=== PATIENT | female | born 1965 | race Caucasian/White ===

== ENCOUNTER → 2017-01-02 | Outpatient (CLI) | payer OTHER ==
--- NOTE | 2017-01-02 18:26 | Diagnostic Imaging Report ---
INDICATION: Question of cyst on outside CT scan. No study for comparison currently available. FINDINGS: Uterus measures 8.4 x 4 x 3.6 cm. Endometrial stripe is not thickened. Cystic area in the right adnexa measuring 4.2 x 3.2 x 3.2 cm. This has a relatively benign appearance. The ovaries are not identified. There is no free fluid. IMPRESSION: There is a cyst in the right adnexa measuring 4.2 x 3.2 cm. This cannot definitely be confirmed to be ovarian. Followup is recommended to confirm clearing. Dictated by: Dictated on workstation # [id number]
== END ==
LOC: RAD 17:00
PROVIDERS: ATTEND Obstetrics & Gynecology
DX: N83.8 Other noninflammatory disorders of ovary, fallopian tube and broad ligament (principal)
CPT/HCPCS: 76830; 76856

== ENCOUNTER 2017-04-07 15:49 | Emergency (ER) | payer OTHER ==
[~2017-04-07] VITALS: Ht 172.7 cm; Wt 136.1 kg
--- NOTE | 2017-04-07 16:43 | ED Integumentary General ---
General Chief Complaint: Skin/Wound Problems Stated Complaint: CELLULITIS L LEG/FEVER Source: patient, family Exam Limitations: no limitations History of Present Illness Time seen by provider: 16:37 Initial Comments Patient was seen by Dr. ALARCON on Sunday proximally 3 days ago and she was having another bout of cellulitis which she gets from time to time. She has lupus and is treated with methotrexate and Imuran. She feels that after taking 2 days of her gentamicin that she has not gotten any better but rather her rashes gotten worse upper leg on the left ankle to mid way up the calf as well as feels hotter and more tender. She has also noted a fever of 100.3 height today. In The past she was treated successfully with Keflex. She denies any nausea or vomiting, chills, diarrhea, other rash. She says she does feel achy throughout though. Allergies and Home Medications Allergies Coded Allergies: Penicillins (Verified Allergy, Unknown, 04/07/17) Uncoded Allergies: CT CONTRAST (Allergy, Unknown, 04/07/17) Constitutional: see HPI, No chills, No diaphoresis EENTM: No hoarseness, No mouth swelling Respiratory: No cough, No dyspnea on exertion, No short of breath Cardiovascular: No chest pain, No edema, No palpitations Gastrointestinal: No abdominal pain, No constipation, No diarrhea, No nausea, No vomiting Genitourinary: No dysuria, No frequency Musculoskeletal: back pain, joint swelling (multiple chronic) Skin: see HPI Past Tatexos-Nlrfua-Fytqhk Hx Patient Social History Alcohol Use: Occasionally Uses Smoking Status: Never a Smoker Recent Foreign Travel: No Contact w/Someone Who Travel: No Physical Exam Vital Signs Vital Sign - Last 12Hours 04/07/17 16:30 Temp 98.7 Pulse 76 Resp 20 B/P (MAP) 134/85 Pulse Ox 96 O2 Delivery Room Air Capillary Refill : General Appearance: WD/WN, no apparent distress HEENT: PERRL/EOMI, pharynx normal Neck: full range of motion, normal inspection Cardiovascular: regular rate, rhythm, other (bilateral ankle edema) Extremities: normal range of motion, no calf tenderness, inflammation (tender to palpation left lower leg anterior over the ankle.), swelling (left anterior lower leg with bright redness, warmth and tight scaling skin. No evidence of abscess or pocket fluctuation. Skin is otherwise intact.) Neurologic/Psychiatric: no motor/sensory deficits, alert, oriented x 3 Skin: rash (bright red, warm and dry over left lower leg) Skin Problem Location: lower extremities (left) Skin Problem Character: erythema, rash, tenderness Progress/Results/Core Measures Results/Orders Lab Results Laboratory Tests Test 04/07/17 17:00 Range/Units White Blood Count 10.3 4.3-11.0 10^3/uL Red Blood Count 4.01 L 4.35-5.85 10^6/uL Hemoglobin 12.5 11.5-16.0 G/DL Hematocrit 38 35-52 % Mean Corpuscular Volume 95 80-99 FL Mean Corpuscular Hemoglobin 31 25-34 PG Mean Corpuscular Hemoglobin Concent 33 32-36 G/DL Red Cell Distribution Width 14.9 H 10.0-14.5 % Platelet Count 284 130-400 10^3/uL Mean Platelet Volume 9.8 7.4-10.4 FL Neutrophils (%) (Auto) 76 H 42-75 % Lymphocytes (%) (Auto) 12 12-44 % Monocytes (%) (Auto) 7 0-12 % Eosinophils (%) (Auto) 4 0-10 % Basophils (%) (Auto) 0 0-10 % Neutrophils # (Auto) 7.9 H 1.8-7.8 X 10^3 Lymphocytes # (Auto) 1.2 1.0-4.0 X 10^3 Monocytes # (Auto) 0.7 0.0-1.0 X 10^3 Eosinophils # (Auto) 0.4 H 0.0-0.3 10^3/uL Basophils # (Auto) 0.0 0.0-0.1 10^3/uL Sodium Level 140 135-145 MMOL/L Potassium Level 4.1 3.6-5.0 MMOL/L Chloride Level 103 98-107 MMOL/L Carbon Dioxide Level 26 21-32 MMOL/L Anion Gap 11 5-14 MMOL/L Blood Urea Nitrogen 8 7-18 MG/DL Creatinine 0.79 0.60-1.30 MG/DL Estimat Glomerular Filtration Rate > 60 BUN/Creatinine Ratio 10 Glucose Level 92 70-105 MG/DL Lactic Acid Level 1.35 0.50-2.00 MMOL/L Calcium Level 10.4 H 8.5-10.1 MG/DL Total Bilirubin 0.5 0.1-1.0 MG/DL Aspartate Amino Transf (AST/SGOT) 20 5-34 U/L Alanine Aminotransferase (ALT/SGPT) 15 0-55 U/L Alkaline Phosphatase 87 40-136 U/L Total Protein 7.7 6.4-8.2 G/DL Albumin 4.3 3.2-4.5 G/DL My Orders Orders - JOHNATHON KWOK Cbc With Automated Diff (04/07/17 16:47) Comprehensive Metabolic Panel (04/07/17 16:47) Lactic Acid Analyzer (04/07/17 16:47) Ceftriaxone Injection (Rocephin Injectio (04/07/17 17:00) Lidocaine Pf 1% 5 Ml Injection (Xylocain (04/07/17 17:23) Ceftriaxone Injection (Rocephin Injectio (04/07/17 17:30) Lidocaine 1% Injection (Xylocaine 1% Inj (04/07/17 17:30) Medications Given in ED Current Medications Medications Dose Ordered Sig/Jm Route Start Time Stop Time Status Last Admin Dose Admin Ceftriaxone Sodium 1,000 mg ONCE ONCE IM 04/07/17 17:30 04/07/17 17:31 DC 04/07/17 17:40 1,000 MG Lidocaine HCl 5 ml STK-MED ONCE .ROUTE 04/07/17 17:23 04/07/17 17:28 DC 04/07/17 17:40 5 ML Vital Signs/I&O Vital Sign - Last 12Hours 04/07/17 16:30 Temp 98.7 Pulse 76 Resp 20 B/P (MAP) 134/85 Pulse Ox 96 O2 Delivery Room Air Progress Note : Time: 16:52 Progress Note The patient reports having a fever but her vitals are normal at this time and there is no evidence of SIRS criteria area we will obtain some blood ascertain whether or not she is acutely ill requiring IV antibiotics versus outpatient trial #2. Think would be reasonable to start her on a trial of outpatient Keflex and give her a dose of Rocephin today. She is not asking for anything for pain or nausea at this time. She will follow up with her PCP Dr. Alarcon or return to the ER with strict return protocol Departure Impression Impression: Primary Impression: Cellulitis Qualified Codes: L03.116 - Cellulitis of left lower limb Disposition: 01 HOME, SELF-CARE Condition: Improved Departure-Patient Inst. Referrals: NO,LOCAL PHYSICIAN (PCP/Family) Primary Care Physician Patient Instructions: Cellulitis (Skin Infection), Adult (DC) Add. Discharge Instructions: You've been switched to Keflex to be taken four times daily with food if possible. You should also consider getting probiotics to be taken twice daily or yogurt with active culture twice daily to try and eliminate some of the risk of diarrheal side effects from the antibiotics. If you're having pain Tylenol, Motrin and elevation as well as ice to the region of the cellulitis will be helpful. If you're having nausea, vomiting worsening fevers or not getting better the next 3-4 days you should return to your primary care physician or the ER which ever is appropriate. All discharge instructions reviewed with patient and/or family. Voiced understanding. Scripts Cephalexin (Keflex) 500 Mg Capsule 500 MG PO QID for 10 Days, #40 CAP 0 Refills Prov: JOHNATHON KWOK 04/07/17 Work/School Note: Work Release Form Date Seen in the Emergency Department: Apr 07, 2017 Return to Work: Apr 09, 2017 Restrictions: No Restrictions Copy Copies To 1: MACARENA ALARCON TITUS J Apr 07, 2017 16:43
[2017-04-07] MEDS ORDERED: cefTRIAXone INJECTION 1,000 MG in NS (IVPB) 50 ML IV ONE (17:00)
[2017-04-07 17:12] LABS: BASOPHILS % (AUTO) 0 % (0-10); EOSINOPHILS # (AUTO) 0.4 10^3/uL (0.0-0.3); EOSINOPHILS % (AUTO) 4 % (0-10); LYMPHOCYTES # (AUTO) 1.2 X 10^3 (1.0-4.0); LYMPHOCYTES % (AUTO) 12 % (12-44); MEAN CORPUSCULAR HEMOGLOBIN 31 PG (25-34); MEAN CORPUSCULAR HGB CONC 33 G/DL (32-36); MEAN CORPUSCULAR VOLUME 95 FL (80-99); MEAN PLATELET VOLUME 9.8 FL (7.4-10.4); MONOCYTES # (AUTO) 0.7 X 10^3 (0.0-1.0); MONOCYTES % (AUTO) 7 % (0-12); NEUTROPHILS # (AUTO) 7.9 X 10^3 (1.8-7.8); NEUTROPHILS % (AUTO) 76 % (42-75); PLATELET COUNT 284 10^3/uL (130-400); RED BLOOD COUNT 4.01 10^6/uL (4.35-5.85); RED CELL DISTRIBUTION WIDTH 14.9 % (10.0-14.5); WHITE BLOOD COUNT 10.3 10^3/uL (4.3-11.0)
[2017-04-07] MEDS ORDERED: LIDOCAINE PF 1% 5 ML (XYLOCAINE) AMP ONE (17:23)
[2017-04-07 17:30] LABS: ALANINE AMINOTRANSFERASE 15 U/L (0-55); ALBUMIN 4.3 G/DL (3.2-4.5); ANION GAP 11 MMOL/L (5-14); ASPARTATE AMINO TRANSFERASE 20 U/L (5-34); BILIRUBIN,TOTAL 0.5 MG/DL (0.1-1.0); BLOOD UREA NITROGEN 8 MG/DL (7-18); BUN/CREATININE RATIO 10; CALCIUM 10.4 MG/DL (8.5-10.1); CARBON DIOXIDE 26 MMOL/L (21-32); CHLORIDE 103 MMOL/L (98-107); CREATININE SERUM 0.79 MG/DL (0.60-1.30); GFR ESTIMATED > 60; GLUCOSE 92 MG/DL (70-105); POTASSIUM 4.1 MMOL/L (3.6-5.0); SODIUM 140 MMOL/L (135-145); TOTAL PROTEIN 7.7 G/DL (6.4-8.2)
[2017-04-07] MEDS ORDERED: cefTRIAXone 1 GM (ROCEPHIN) VIAL IM ONE (17:30)
[2017-04-07] MEDS ORDERED: LIDOCAINE 1% INJ 20 ML (XYLOCAINE) VIAL INJ ONE (17:30)
[2017-04-07] MEDS ORDERED: CEPH-507 PO (17:46)
[2017-04-07 17:55] VITALS: BP 134/85
== END 2017-04-07 17:55 | disposition home or self-care (01) ==
LOC: EDUNIT# 15:49 → ER 15:50
DX: L03.116 Cellulitis of left lower limb (principal)
CPT/HCPCS: 36415; 80053; 83605; 85025; 99282

== ENCOUNTER → 2017-04-10 | Outpatient (CLI) | payer OTHER ==
[~2017-04-10] MED LIST: CEPH-507 PO
--- NOTE | 2017-04-10 17:16 | Diagnostic Imaging Report ---
CLINICAL INDICATION: Followup right adnexal cyst. EXAM: Transabdominal and transvaginal ultrasound of the pelvis. COMPARISON: Ultrasound of the pelvis dated 01/02/2017. FINDINGS: Shadowing obscures portions of this exam. The uterus measures grossly 8.8 cm x 4.5 cm x 4.4 cm. There are cystic areas seen in the region of the cervix, which may be related to nabothian cysts. Endometrial stripe is 9 mm. There is a 3.2 cm x 3.3 cm x 3.0 cm cystic structure in the right adnexal region, which has slightly decreased in size compared to the prior study measured at 4.2 cm x 3.2 cm. It is unknown if this is associated with the right ovary or in the periovarian region. There is no free fluid in the pelvis. The left ovary is not seen on today's exam due to overlying bowel gas. IMPRESSION: 1: Interval decreased size of the cystic area in the right adnexal region. Unknown if this is associated with the right ovary or in the periovarian region. Followup pelvic ultrasound in three months is suggested to evaluate for interval change. 2: The left ovary is unable to be evaluated on this exam due to overlying bowel gas. 3: The remainder of the exam shows no significant interval change. Dictated by: Dictated on workstation # [id number]
== END ==
LOC: RAD 16:19
PROVIDERS: ATTEND Obstetrics & Gynecology
DX: N83.201 Unspecified ovarian cyst, right side (principal)
CPT/HCPCS: 76830; 76856

== ENCOUNTER → 2017-07-17 | Outpatient (CLI) | payer OTHER ==
--- NOTE | 2017-07-17 19:54 | Diagnostic Imaging Report ---
EXAMINATION: Transabdominal and transvaginal pelvic ultrasound. INDICATION: Right ovarian cyst. COMPARISON: 04/10/2017 exam. FINDINGS: The uterus is 8.0 x 4.8 x 4.7 cm in size. The myometrium is slightly heterogeneous. No discrete focal mass. The endometrial stripe is 0.6 cm in thickness. This could be within normal limits if the patient is still perimenopausal. Correlate clinically. The adnexa are obscured by bowel gas. The ovaries and the previously seen cystic lesion in the right adnexa are not visualized. IMPRESSION: 1. Enlarged uterus without discrete focal mass, could correlate with adenomyosis. 2. The endometrial stripe is 6 mm in thickness. This could be normal if the patient is still perimenopausal. Correlate clinically. 3. The previously seen adnexal cyst is not identified, potentially obscured by bowel gas or resolved. Consider follow-up exams or evaluation with pelvic MRI. Dictated by: Dictated on workstation # [id number]
== END ==
LOC: CARD 14:42
PROVIDERS: ATTEND Obstetrics & Gynecology
DX: N83.201 Unspecified ovarian cyst, right side (principal)
CPT/HCPCS: 76830; 76856

== ENCOUNTER → 2017-10-08 | Outpatient (CLI) | payer OTHER ==
--- NOTE | 2017-10-08 18:56 | Diagnostic Imaging Report ---
INDICATION: Right ovarian cyst, followup. Pelvic sonography performed with transabdominal and transvaginal views and compared with 07/17/17. FINDINGS: The uterus measured 8.3 x 4.6 x 3.6 cm. Endometrium measured 4 mm. The uterus appeared unremarkable. Neither ovary could be visualized due to overlying bowel gas. There was no free fluid. IMPRESSION: Normal-appearing uterus. Neither ovary could be visualized due to bowel gas. Previously described right ovarian cystic lesion seen in December and March 2017 cannot be visualized on this study. Suggest followup as clinically warranted. Dictated by: Dictated on workstation # [id number]
== END ==
LOC: RAD 16:02
PROVIDERS: ATTEND Obstetrics & Gynecology
DX: N83.201 Unspecified ovarian cyst, right side (principal)
CPT/HCPCS: 76830; 76856